=== PATIENT | female | born 1995 | race African-American/Black ===

== ENCOUNTER 2023-10-06 10:31 | Emergency (ER) | payer OTHER ==
[~2023-10-06] VITALS: Ht 177.8 cm; Wt 91.0 kg
[2023-10-06 10:39] VITALS: BP 109/52; PULSE 92; RESP 18; TEMP 98.3
[2023-10-06] MEDS: LORazepam 1 MG TABLET PO ONE (11:58)
== END 2023-10-06 12:42 | disposition home or self-care (01) ==
LOC: EMS 10:32
DX: F41.9 Anxiety disorder, unspecified (principal); G43.909 Migraine, unspecified, not intractable, without status migrainosus
CPT/HCPCS: 99283